=== PATIENT | male | born 1990 | race Hispanic/Latino ===

== ENCOUNTER 2021-08-15 11:10 | Day surgery (SDC) | payer BC ==
[2021-08-10 11:56] LABS: Absolute Lymphocytes (CBC) 2.2 K/uL (0.7-4.9); Basophils % 0.9 % (0-1.3); Hematocrit 43.9 % (39.6-49.0); Lymphocytes % 34.3 % (15.3-44.8); MPV 10.1 fL (7.6-11.3); RBC Red Blood Cell Count 4.86 M/uL (4.33-5.43)
[2021-08-10 12:00] LABS: Protime INR 0.91
[2021-08-15] MEDS ORDERED: CEFAZOLIN/NS 1gm 1 GM/50 ML BAG ONE (11:55)
[2021-08-15] MEDS ORDERED: Ringers Lactate 1,000 ML IV ONE (11:55)
[2021-08-15] MEDS ORDERED: ACETAMINOPHEN 500 MG TAB ONE (13:15)
[2021-08-15] MEDS ORDERED: CELECOXIB 100 MG CAPSULE ONE (13:15)
[2021-08-15] MEDS ORDERED: ACETAMINOPHEN 500 MG TAB PO ONE (13:18)
[2021-08-15] MEDS ORDERED: CELECOXIB 100 MG CAPSULE PO ONE (13:18)
[2021-08-15] MEDS ORDERED: propofoL 200 MG/20 ML VIAL IV ONE ×2 (13:53→14:20)
[2021-08-15] MEDS ORDERED: FENTANYL CITR 100 MCG/2 ML ONE ×2 (13:54→14:34)
[2021-08-15] MEDS ORDERED: MIDAZOLAM HCL 2 MG/2 ML INJ ONE (13:54)
[2021-08-15] MEDS ORDERED: LIDOCAINE 1% MPF 5 ML VIAL ONE (13:54)
[2021-08-15] MEDS ORDERED: LIDOCAINE 1% 20 ML MDV ONE (13:56)
[2021-08-15] MEDS ORDERED: BUPIVACAINE 0.5% PF 10 ML VIAL ONE (13:56)
[2021-08-15] MEDS ORDERED: KETOROLAC 30 MG/ML INJ ONE (14:21)
[2021-08-15] MEDS ORDERED: CEFAZOLIN SODIUM 1 GM/VIAL ONE (14:24)
[2021-08-15] MEDS ORDERED: ONDANSETRON 4 MG/2 ML VIAL ONE (14:24)
[2021-08-15] MEDS ORDERED: BACITRACIN OINTMENT 14 GM TUBE TOP ONE (15:13)
[2021-08-15] MEDS ORDERED: CODEINE 30MG/APAP 300MG TAB PO PRN (15:56)
[2021-08-15] MEDS ORDERED: CODEINE 30MG/APAP 300MG TAB ONE (16:20)
[2021-08-15 16:44] VITALS: BP 142/88; TEMP 97.6; O2SAT 99
--- NOTE | 2021-08-15 19:00 | OP ---
Surgeon: CHRISTIANA VALENZUELA Preoperative Diagnosis: Organized right scrotal hematoma. Postoperative Diagnosis: Organized right scrotal hematoma. Principal Procedure: Right hemiscrotal exploration and excision of organized hematoma. Indication For Procedure: Mr. Beebe is a 30-year-old gentleman who underwent vasectomy in April complicated by development of a large right hemiscrotal hematoma. Over the last several weeks, the hematoma has largely resolved, but an approximately 2 x 2 cm circular but nontender mass was residual in the right hemiscrotum superior to the testes in the region of the cord structures. Because the p atient was still feeling a degree of induration extending into the inguinal canal and after more than 2 months the hematoma had not completely resolved, we discussed proceeding with excision of the orga nized hematoma. Procedure In Detail: The patient was consented in the preoperative holding area before being transfe rred to the operative suite where general anesthesia was induced. He was given Ancef 2 g IV antimicr obial prophylaxis. Pneumo boots were provided for DVT prophylaxis. He was placed in supine position , padded and secured to the table appropriately. His genitalia were prepped using Betadine and drape d in standard fashion. The case was begun identifying a Seun's line incision in the right hemiscro sandrine overlying the hematoma. Subcutaneous Marcaine 0.5% was injected and an incision was made using a 15 blade. This was deepened through the subcutaneous tissues down into the dartos layers where the encapsulated hematoma was encountered. I then circumferentially dissected the hematoma from within t he dartos layers eventually removing it in its entirety. At the base of the hematoma, there was a cl ear vascular arterial attachment, which when divided did bleed. I oversewed this using 4-0 Vicryl coffman ture. At no point in the procedure was the testis visible and the cord structures were largely intac t and not disrupted throughout the procedure. After the initial body of the hematoma was removed, I then surveyed more superiorly heading toward the right inguinal canal region and identified another s maller area of hematoma there. I again excised the superior component of this and removed the capsul e from within the base of the hematoma. In the end, all the induration and hematoma was removed, and a careful search for bleeding was undertaken. Fulguration of any bleeding vessels was performed, th en I copiously irrigated the subcutaneous tissues. Once this was done, and with no other visible ble eding noted, I then began reconstruction using 3-0 Vicryl suture. The subcutaneous tissues were reap proximated in a running fashion. The dartos layers were then reapproximated also in a running fashio n using 3-0 Vicryl. Then the skin and subcutaneous tissues were closed in a running fashion using 3- 0 chromic suture dipped in bacitracin. Another several cc of 0.5% Marcaine was injected subcutaneous ly at the end of the procedure for pain control. The patient was then awakened from general anesthes ia, transferred to a stretcher, and then transferred to the recovery room in good condition. Complications: None. Discharge Disposition: He should follow up in the [facility] within the next couple weeks to ass ess healing after the hematoma excision. I did direct care counselor him on the potential for some edema, postoper ative swelling that would be typical after such a procedure. As a result, I recommended he wear scro pooja support until that edema has a chance to resolve. JIMENEZ/ROD Voice ID: [id number] Report ID: [id number]
== END 2021-08-15 16:39 | disposition home or self-care (01) ==
LOC: OR 11:10
PROVIDERS: ATTEND Urology
PROC: 0VC50ZZ Extirpation of Matter from Scrotum, Open Approach (ICD-10-PCS; principal; 2021-08-15 12:15)
DX: S30.22XA Contusion of scrotum and testes, initial encounter (principal); Z20.822 Contact with and (suspected) exposure to COVID-19
CPT/HCPCS: 93005; 85025; 80048; 36415; 85610; 88305; 11422; U0002; J2704 ×2; J2250; J3010 ×2; J0690 ×2; J7120; J2405; 88304